=== PATIENT | male | born 1930 | race Caucasian/White ===

== ENCOUNTER 2017-09-17 19:11 | Inpatient (IN) | payer MEDICARE, OTHER ==
[~2017-09-17] VITALS: Ht 180.3 cm; Wt 90.9 kg
[~2017-09-17 19:11] MED LIST: ALPR-623 PO; ATOR10TA87 PO; ATR0.5NEB IH; CARB15DR2 EACHEYE; CHOL200035 PO; CLOP75TA35 PO; COU4T PO; COU5T PO; DOCU100C41 PO; FLO0.4C PO; FURO-150 PO; GABA600T2 PO; GUAI100L97 PO; LEVO500T2 PO; LEVO50TA8 PO; LOSA25TA96 PO; METO-395 PO; MULT-785 PO; POTA10TA10 PO; ROPI1TAB2 PO; SIMV20TA5 PO; SOTA80TA PO; UBID100C16 PO; VITC500T PO
[2017-09-17] MEDS ORDERED: ipratropium/albuterol 3ml nebule NEB ONE (19:45)
[2017-09-17] MEDS ORDERED: methylPREDNISolone sod succ 125mg/2ml vial IV ONE (19:45)
[2017-09-17 20:21] LABS: BASOPHILS % (AUTO) 0.2 % (0-1); EOSINOPHILS # (AUTO) 0.3 X10'3 (0-0.9); EOSINOPHILS % (AUTO) 3.5 % (0-6); HEMATOCRIT 31.4 % (42.0-52.0); HEMOGLOBIN 10.5 g/dl (14.0-17.9); LYMPHOCYTES % (AUTO) 9.9 % (21-51); MEAN CORPUSCULAR HEMOGLOBIN 32.7 PG (27.0-31.0); MEAN CORPUSCULAR HGB CONC 33.4 % (33.0-36.5); MEAN CORPUSCULAR VOLUME 97.8 FL (78-98); MEAN PLATELET VOLUME 6.9 FL (7.4-10.4); MONOCYTES # (AUTO) 1.3 X10'3 (0-0.9); MONOCYTES % (AUTO) 13.8 % (2-12); NEUTROPHILS # (AUTO) 7.1 X10'3 (1.8-7.7); NEUTROPHILS % (AUTO) 72.6 % (42-75); PLATELET COUNT 193 X10'3 (140-440); RED BLOOD COUNT 3.21 X10'6 (4.70-6.10); RED CELL DISTRIBUTION WIDTH 15.6 % (11.5-14.5); WHITE BLOOD COUNT 9.8 X10'3 (4.5-11.0)
[2017-09-17 20:33] LABS: INR 2.2 INR; PARTIAL THROMBOPLASTIN TIME 38 SECONDS (22-32); PROTHROMBIN TIME 22.1 SECONDS (9.0-12.0)
[2017-09-17 20:48] LABS: ALANINE AMINOTRANSFERASE 18 U/L (12-78); ALBUMIN 3.4 G/DL (3.4-5.0); ALBUMIN/GLOBULIN RATIO 0.9 (1.1-1.5); ALKALINE PHOSPHATASE 106 IU/L (46-116); ANION GAP 1 (8-16); ASPARTATE AMINO TRANSFERASE 16 U/L (10-37); BILIRUBIN,TOTAL 0.8 MG/DL (0.1-1.0); BLOOD UREA NITROGEN 20 MG/DL (7-18); BUN/CREATININE RATIO 17.5 (5.4-32.0); CALCIUM 8.8 MG/DL (8.5-10.1); CHLORIDE 97 MMOL/L (99-107); CREATININE 1.14 MG/DL (0.60-1.10); GLUCOSE 125 MG/DL (70-104); POTASSIUM 4.7 MMOL/L (3.5-5.1); SODIUM 137 MMOL/L (135-145); TOTAL CARBON DIOXIDE 39.3 MMOL/L (24-32); eGFR 61 ML/MIN
[2017-09-17] MEDS ORDERED: DOCU-28 PO (21:48)
[2017-09-17] MEDS ORDERED: LOSA25TA96 PO (21:48)
[2017-09-17] MEDS ORDERED: AMLO2.5T2 PO (21:48)
[2017-09-17] MEDS ORDERED: FURO80TA87 PO (21:48)
[2017-09-17] MEDS ORDERED: HYDR-565 PO (21:48)
[2017-09-17] MEDS ORDERED: IPRA3AMP IH (21:48)
[2017-09-17] MEDS ORDERED: PANT-47 PO (21:48)
[2017-09-17] MEDS ORDERED: acetaminophen 325mg tablet PO PRN ×2 (22:40)
[2017-09-17] MEDS ORDERED: furosemide 10 MG/1 ML 10ml inj IV ONE (22:40)
[2017-09-17] MEDS ORDERED: magnesium hydroxide 30ml (MOM) UD suspension PO PRN (22:40)
[2017-09-17] MEDS ORDERED: mag hydrox/Alum hydrox/simeth 30ml oral suspension PO PRN (22:40)
[2017-09-17] MEDS ORDERED: ondansetron/PF 4mg/2ml inj IV PRN (22:40)
[2017-09-17] MEDS ORDERED: ipratropium/albuterol 3ml nebule IH PRN (22:55)
[2017-09-17] MEDS ORDERED: HYDROcodone/acetaminophen 10/325mg tab PO PRN (22:55)
[2017-09-17] MEDS ORDERED: warfarin 2.5mg tablet PO ONE (23:15)
[2017-09-18] VITALS (7 sets, daily range): BP systolic 95–136; BP diastolic 57–72
[2017-09-18 02:28] LABS: ALBUMIN 3.3 G/DL (3.4-5.0); ANION GAP 4 (8-16); BLOOD UREA NITROGEN 21 MG/DL (7-18); BUN/CREATININE RATIO 18.9 (5.4-32.0); CALCIUM 8.7 MG/DL (8.5-10.1); CHLORIDE 98 MMOL/L (99-107); CREATININE 1.11 MG/DL (0.60-1.10); GLUCOSE 210 MG/DL (70-104); SODIUM 137 MMOL/L (135-145); TOTAL CARBON DIOXIDE 34.8 MMOL/L (24-32); eGFR 63 ML/MIN
[2017-09-18] MEDS: levoTHYROXINE 25mcg tablet PO SCH (07:20)
[2017-09-18] MEDS: docusate sod 100mg capsule PO SCH (07:20)
[2017-09-18] MEDS: losartan 25mg tablet PO SCH (07:21)
[2017-09-18] MEDS: potassium chloride 10mEq ER tablet PO SCH ×3 (07:21→17:25)
[2017-09-18] MEDS: atorvastatin 10mg tablet PO SCH (07:21)
[2017-09-18] MEDS: multivitamins, therapeutics tablet PO SCH (07:21)
[2017-09-18] MEDS: pantoprazole 40mg Tablet.DR PO SCH (07:21)
[2017-09-18] MEDS: clopidogrel 75mg tablet PO SCH (07:21)
[2017-09-18] MEDS ORDERED: non-formulary drug (Ubidecarenone (Coq-10) 100 MG) PO SCH (08:00)
[2017-09-18] MEDS ORDERED: furosemide 10 MG/1 ML 10ml inj IV SCH (08:00)
[2017-09-18] MEDS ORDERED: amLODIPine 2.5mg tablet PO SCH (08:00)
[2017-09-18 09:00] LABS: BASOPHILS % (AUTO) 0.1 % (0-1); EOSINOPHILS # (AUTO) 0.1 X10'3 (0-0.9); HEMATOCRIT 31.1 % (42.0-52.0); HEMOGLOBIN 10.5 g/dl (14.0-17.9); LYMPHOCYTES # (AUTO) 0.6 X10'3 (1.1-4.8); LYMPHOCYTES % (AUTO) 9.5 % (21-51); MEAN CORPUSCULAR HEMOGLOBIN 33.3 PG (27.0-31.0); MEAN CORPUSCULAR HGB CONC 33.6 % (33.0-36.5); MEAN PLATELET VOLUME 7.2 FL (7.4-10.4); MONOCYTES # (AUTO) 0.1 X10'3 (0-0.9); MONOCYTES % (AUTO) 1.8 % (2-12); NEUTROPHILS # (AUTO) 5.6 X10'3 (1.8-7.7); NEUTROPHILS % (AUTO) 87.6 % (42-75); PLATELET COUNT 177 X10'3 (140-440); RED BLOOD COUNT 3.14 X10'6 (4.70-6.10); RED CELL DISTRIBUTION WIDTH 15.6 % (11.5-14.5); WHITE BLOOD COUNT 6.4 X10'3 (4.5-11.0)
[2017-09-18 09:04] LABS: INR 2.5 INR; PROTHROMBIN TIME 25.4 SECONDS (9.0-12.0)
[2017-09-18] MEDS: furosemide 10 MG/1 ML 10ml inj IV SCH (15:34)
[2017-09-18] MEDS ORDERED: MESSAGE TO NURSING PO NR (20:00)
[2017-09-18] MEDS: carVEDilol 3.125mg tablet PO SCH (20:19)
[2017-09-19] VITALS (8 sets, daily range): BP systolic 85–120; BP diastolic 34–61
[2017-09-19] MEDS: furosemide 10 MG/1 ML 10ml inj IV SCH ×2 (00:36→09:54)
[2017-09-19 05:49] LABS: INR 2.6 INR; PROTHROMBIN TIME 26.1 SECONDS (9.0-12.0)
[2017-09-19 06:07] LABS: ALBUMIN 2.9 G/DL (3.4-5.0); ANION GAP 3 (8-16); BLOOD UREA NITROGEN 25 MG/DL (7-18); CALCIUM 8.3 MG/DL (8.5-10.1); CHLORIDE 97 MMOL/L (99-107); GLUCOSE 104 MG/DL (70-104); POTASSIUM 3.5 MMOL/L (3.5-5.1); SODIUM 137 MMOL/L (135-145); TOTAL CARBON DIOXIDE 37.3 MMOL/L (24-32); eGFR 71 ML/MIN
[2017-09-19] MEDS: potassium chloride 10mEq ER tablet PO SCH ×3 (09:49→18:00)
[2017-09-19] MEDS: albuterol 2.5 MG/3 ML nebule NEB SCH ×2 (09:49→11:21)
[2017-09-19] MEDS: atorvastatin 10mg tablet PO SCH (09:50)
[2017-09-19] MEDS: carVEDilol 3.125mg tablet PO SCH (09:51)
[2017-09-19] MEDS: multivitamins, therapeutics tablet PO SCH (09:52)
[2017-09-19] MEDS: clopidogrel 75mg tablet PO SCH (09:52)
[2017-09-19] MEDS: levoTHYROXINE 25mcg tablet PO SCH (09:53)
[2017-09-19] MEDS: pantoprazole 40mg Tablet.DR PO SCH (09:53)
[2017-09-19] MEDS: losartan 25mg tablet PO SCH (09:53)
[2017-09-19] MEDS: docusate sod 100mg capsule PO SCH (09:54)
[2017-09-19] MEDS ORDERED: furosemide 40mg/4ml inj IV ONE (12:30)
[2017-09-19] MEDS ORDERED: normal saline 1000ml 1,000 ML IV ONE (13:05)
[2017-09-19 15:21] LABS: ABG BASE EXCESS 7.2 mmol/L (-2.0-3.0); ABG HCO3 32.4 mmol/L (22.0-26.0); ABG OXYGEN SATURATION 98.4 % (95-98); ABG PCO2 (T) 49.2 mmHg (35.0-48.0); ABG PH (T) 7.437 (7.350-7.450); ABG PO2 (T) 135.5 mmHg (83-108); ALLEN'S TEST Positive; FCOHb 0.3 % (0.5-1.5); FLOW 15 L/min; FMetHb 0.2 % (0.3-1.12); FO2Hb 97.9 % (94-100); RESPIRATORY RATE (OBSERVED) 30 b/min
[2017-09-19] MEDS: piperacillin/tazo 4.5gm/100ml 100 ML IV SCH (16:26)
[2017-09-19] MEDS: ipratropium/albuterol 3ml nebule IH SCH ×2 (16:52→20:57)
[2017-09-19] MEDS: levoFLOXACIN-Levaquin 750MG/D5 150 ML IV SCH (17:00)
[2017-09-19] MEDS: furosemide 20 MG/2 ML vial IV SCH (20:00)
[2017-09-19] MEDS: temazepam 15mg capsule PO PRN (22:21)
[2017-09-19] MEDS: acetaminophen 325mg tablet PO PRN (22:21)
[2017-09-20] MEDS: piperacillin/tazo 4.5gm/100ml 100 ML IV SCH ×2 (00:34→08:18)
[2017-09-20 03:00] VITALS: BP 92/46
[2017-09-20 06:00] VITALS: BP 101/57
[2017-09-20 06:32] LABS: INR 2.1 INR; PROTHROMBIN TIME 21.4 SECONDS (9.0-12.0)
[2017-09-20 06:55] LABS: ALBUMIN 2.5 G/DL (3.4-5.0); ANION GAP 3 (8-16); BLOOD UREA NITROGEN 34 MG/DL (7-18); BUN/CREATININE RATIO 25.4 (5.4-32.0); CHLORIDE 96 MMOL/L (99-107); CREATININE 1.34 MG/DL (0.60-1.10); GLUCOSE 100 MG/DL (70-104); POTASSIUM 3.8 MMOL/L (3.5-5.1); SODIUM 138 MMOL/L (135-145); TOTAL CARBON DIOXIDE 38.7 MMOL/L (24-32); TROPONIN I < 0.04 NG/ML (0.0-0.05); eGFR 50 ML/MIN
[2017-09-20] MEDS: ipratropium/albuterol 3ml nebule IH SCH ×4 (07:13→20:12)
[2017-09-20] MEDS: potassium chloride 10mEq ER tablet PO SCH ×3 (08:08→17:51)
[2017-09-20] MEDS: multivitamins, therapeutics tablet PO SCH (08:08)
[2017-09-20] MEDS: atorvastatin 10mg tablet PO SCH (08:08)
[2017-09-20] MEDS: docusate sod 100mg capsule PO SCH (08:08)
[2017-09-20] MEDS: pantoprazole 40mg Tablet.DR PO SCH (08:08)
[2017-09-20] MEDS: clopidogrel 75mg tablet PO SCH (08:08)
[2017-09-20] MEDS: furosemide 20 MG/2 ML vial IV SCH ×2 (08:09→20:54)
[2017-09-20] MEDS: levoTHYROXINE 25mcg tablet PO SCH (08:21)
[2017-09-20] MEDS: levoFLOXACIN-Levaquin 750MG/D5 150 ML IV SCH (08:57)
[2017-09-20 11:00] VITALS: BP 98/52
[2017-09-20 15:00] VITALS: BP 108/62
[2017-09-20 19:00] VITALS: BP 116/63
[2017-09-20] MEDS: temazepam 15mg capsule PO PRN (20:52)
[2017-09-20] MEDS: acetaminophen 325mg tablet PO PRN (20:53)
[2017-09-20] MEDS ORDERED: warfarin 3mg tablet PO ONE (21:00)
[2017-09-20 23:00] VITALS: BP 98/44
[2017-09-21 03:00] VITALS: BP 108/53
[2017-09-21 06:00] VITALS: BP 106/59
[2017-09-21 06:48] LABS: BASOPHILS % (AUTO) 0 % (0-1); EOSINOPHILS # (AUTO) 0.3 X10'3 (0-0.9); EOSINOPHILS % (AUTO) 3.1 % (0-6); HEMATOCRIT 26.7 % (42.0-52.0); HEMOGLOBIN 9.1 g/dl (14.0-17.9); LYMPHOCYTES % (AUTO) 9.7 % (21-51); MEAN CORPUSCULAR HEMOGLOBIN 34.2 PG (27.0-31.0); MEAN CORPUSCULAR HGB CONC 34.2 % (33.0-36.5); MEAN CORPUSCULAR VOLUME 100.1 FL (78-98); MEAN PLATELET VOLUME 7.2 FL (7.4-10.4); MONOCYTES % (AUTO) 9.8 % (2-12); NEUTROPHILS # (AUTO) 8.2 X10'3 (1.8-7.7); NEUTROPHILS % (AUTO) 77.4 % (42-75); PLATELET COUNT 166 X10'3 (140-440); RED BLOOD COUNT 2.67 X10'6 (4.70-6.10); RED CELL DISTRIBUTION WIDTH 15.3 % (11.5-14.5); WHITE BLOOD COUNT 10.6 X10'3 (4.5-11.0)
[2017-09-21] MEDS: levoTHYROXINE 25mcg tablet PO SCH (07:00)
[2017-09-21 07:01] LABS: ALBUMIN 2.4 G/DL (3.4-5.0); ANION GAP 0 (8-16); BLOOD UREA NITROGEN 26 MG/DL (7-18); CALCIUM 8.2 MG/DL (8.5-10.1); CHLORIDE 98 MMOL/L (99-107); CREATININE 1.18 MG/DL (0.60-1.10); GLUCOSE 98 MG/DL (70-104); INR 1.5 INR; POTASSIUM 3.8 MMOL/L (3.5-5.1); PROTHROMBIN TIME 15.6 SECONDS (9.0-12.0); SODIUM 137 MMOL/L (135-145); TOTAL CARBON DIOXIDE 38.8 MMOL/L (24-32); eGFR 58 ML/MIN
[2017-09-21] MEDS: ipratropium/albuterol 3ml nebule IH SCH ×4 (07:10→20:26)
[2017-09-21] MEDS: furosemide 20 MG/2 ML vial IV SCH ×2 (08:51→21:17)
[2017-09-21] MEDS: docusate sod 100mg capsule PO SCH (08:51)
[2017-09-21] MEDS: pantoprazole 40mg Tablet.DR PO SCH (08:53)
[2017-09-21] MEDS: multivitamins, therapeutics tablet PO SCH (08:53)
[2017-09-21] MEDS: potassium chloride 10mEq ER tablet PO SCH ×3 (08:53→21:25)
[2017-09-21] MEDS: atorvastatin 10mg tablet PO SCH (08:53)
[2017-09-21] MEDS: clopidogrel 75mg tablet PO SCH (08:54)
[2017-09-21 11:30] VITALS: BP 109/77
[2017-09-21 15:30] VITALS: BP 123/59
[2017-09-21 20:00] VITALS: BP_SYST 126; BP_SYST 15; BP_DIAS 55; BP_DIAS 61
[2017-09-21] MEDS ORDERED: warfarin 3mg tablet PO ONE (21:00)
[2017-09-21] MEDS: temazepam 15mg capsule PO PRN (21:17)
[2017-09-21] MEDS: acetaminophen 325mg tablet PO PRN (21:19)
[2017-09-21 23:00] VITALS: BP_SYST 105; BP_SYST 15; BP_DIAS 55
[2017-09-22 03:00] VITALS: BP 123/62
[2017-09-22 06:00] VITALS: BP 126/65
[2017-09-22 06:00] LABS: BASOPHILS % (AUTO) 0.1 % (0-1); EOSINOPHILS # (AUTO) 0.4 X10'3 (0-0.9); EOSINOPHILS % (AUTO) 4.4 % (0-6); HEMATOCRIT 30.1 % (42.0-52.0); LYMPHOCYTES # (AUTO) 1.1 X10'3 (1.1-4.8); LYMPHOCYTES % (AUTO) 12.9 % (21-51); MEAN CORPUSCULAR HEMOGLOBIN 32.6 PG (27.0-31.0); MEAN CORPUSCULAR HGB CONC 33.2 % (33.0-36.5); MEAN CORPUSCULAR VOLUME 98.3 FL (78-98); MONOCYTES # (AUTO) 0.8 X10'3 (0-0.9); MONOCYTES % (AUTO) 9.2 % (2-12); NEUTROPHILS # (AUTO) 6.1 X10'3 (1.8-7.7); NEUTROPHILS % (AUTO) 73.4 % (42-75); PLATELET COUNT 199 X10'3 (140-440); RED BLOOD COUNT 3.06 X10'6 (4.70-6.10); WHITE BLOOD COUNT 8.3 X10'3 (4.5-11.0)
[2017-09-22 06:16] LABS: INR 1.4 INR
[2017-09-22 06:22] LABS: ALBUMIN 2.6 G/DL (3.4-5.0); ANION GAP 1 (8-16); BLOOD UREA NITROGEN 21 MG/DL (7-18); BUN/CREATININE RATIO 18.1 (5.4-32.0); CALCIUM 8.3 MG/DL (8.5-10.1); CHLORIDE 99 MMOL/L (99-107); CREATININE 1.16 MG/DL (0.60-1.10); GLUCOSE 97 MG/DL (70-104); MAGNESIUM 2.3 MG/DL (1.5-2.4); SODIUM 138 MMOL/L (135-145); TOTAL CARBON DIOXIDE 37.7 MMOL/L (24-32); eGFR 59 ML/MIN
[2017-09-22] MEDS: levoTHYROXINE 25mcg tablet PO SCH (07:06)
[2017-09-22] MEDS: potassium chloride 10mEq ER tablet PO SCH ×2 (07:07→13:00)
[2017-09-22] MEDS: docusate sod 100mg capsule PO SCH (07:07)
[2017-09-22] MEDS: clopidogrel 75mg tablet PO SCH (07:07)
[2017-09-22] MEDS: atorvastatin 10mg tablet PO SCH (07:07)
[2017-09-22] MEDS: multivitamins, therapeutics tablet PO SCH (07:07)
[2017-09-22] MEDS: furosemide 20 MG/2 ML vial IV SCH (07:07)
[2017-09-22] MEDS: pantoprazole 40mg Tablet.DR PO SCH (07:07)
[2017-09-22] MEDS: ipratropium/albuterol 3ml nebule IH SCH ×2 (08:41→11:55)
[2017-09-22 11:00] VITALS: BP 121/83
== END 2017-09-22 13:30 | disposition home health service (06) | DRG 291 ==
LOC: ER 19:11 → ED HOLD 22:40 → PCU 3S 09-18 00:41
PROVIDERS: ADMIT Internal Medicine; ATTEND Internal Medicine
DX: I11.0 Hypertensive heart disease with heart failure (principal); J96.21 Acute and chronic respiratory failure with hypoxia; N17.9 Acute kidney failure, unspecified; I95.9 Hypotension, unspecified; I48.91 Unspecified atrial fibrillation; G62.9 Polyneuropathy, unspecified; Z95.1 Presence of aortocoronary bypass graft; Z79.01 Long term (current) use of anticoagulants; I25.10 Atherosclerotic heart disease of native coronary artery without angina pectoris; E03.9 Hypothyroidism, unspecified; E78.5 Hyperlipidemia, unspecified; G89.29 Other chronic pain; I50.33 Acute on chronic diastolic (congestive) heart failure; N40.0 Benign prostatic hyperplasia without lower urinary tract symptoms; Z96.659 Presence of unspecified artificial knee joint; Z95.0 Presence of cardiac pacemaker; I25.2 Old myocardial infarction; Z79.02 Long term (current) use of antithrombotics/antiplatelets; Z79.899 Other long term (current) drug therapy; Z85.828 Personal history of other malignant neoplasm of skin; Z82.49 Family history of ischemic heart disease and other diseases of the circulatory system
CPT/HCPCS: 36415; 36600; 71045; 71046; 80048; 80053; 82803; 83605; 83735; 83880; 84145; 84484; 85018; 85025; 85610; 85730; 86713; 87040; 87070; 87502; 87503; 93005; 94640; 94760; 96374; 97110; 97116; 97161; 99285; A4315; A6212; A6213; J1940; J1956; J2543; J2930; J7030

== ENCOUNTER 2017-11-09 10:20 | Day surgery (SDC) | payer MEDICARE, OTHER ==
[2017-11-08 12:12] LABS: BASOPHILS # (AUTO) 0.1 X10'3 (0-0.2); BASOPHILS % (AUTO) 0.7 % (0-1); EOSINOPHILS # (AUTO) 0.4 X10'3 (0-0.9); EOSINOPHILS % (AUTO) 5.2 % (0-6); HEMATOCRIT 29.7 % (42.0-52.0); HEMOGLOBIN 9.9 g/dl (14.0-17.9); LYMPHOCYTES # (AUTO) 1.1 X10'3 (1.1-4.8); LYMPHOCYTES % (AUTO) 14.4 % (21-51); MEAN CORPUSCULAR HGB CONC 33.4 % (33.0-36.5); MEAN CORPUSCULAR VOLUME 95.8 FL (78-98); MEAN PLATELET VOLUME 6.8 FL (7.4-10.4); MONOCYTES # (AUTO) 0.7 X10'3 (0-0.9); MONOCYTES % (AUTO) 9.8 % (2-12); NEUTROPHILS # (AUTO) 5.2 X10'3 (1.8-7.7); NEUTROPHILS % (AUTO) 69.9 % (42-75); PLATELET COUNT 231 X10'3 (140-440); RED CELL DISTRIBUTION WIDTH 15.2 % (11.5-14.5); WHITE BLOOD COUNT 7.4 X10'3 (4.5-11.0)
[2017-11-08 12:21] LABS: INR 2.6 INR; PROTHROMBIN TIME 25.7 SECONDS (9.0-12.0)
[2017-11-08 12:25] LABS: ALBUMIN 3.2 G/DL (3.4-5.0); ANION GAP 1 (8-16); BLOOD UREA NITROGEN 19 MG/DL (7-18); BUN/CREATININE RATIO 19.2 (5.4-32.0); CALCIUM 8.5 MG/DL (8.5-10.1); CHLORIDE 100 MMOL/L (99-107); CREATININE 0.99 MG/DL (0.60-1.10); GLUCOSE 106 MG/DL (70-104); POTASSIUM 3.7 MMOL/L (3.5-5.1); SODIUM 141 MMOL/L (135-145); eGFR 71 ML/MIN
[2017-11-08 12:33] LABS: TOTAL CARBON DIOXIDE 40.3 MMOL/L (24-32)
[2017-11-09] VITALS (15 sets, daily range): BP systolic 113–148; BP diastolic 54–79
[~2017-11-09 10:20] MED LIST changes: -ALPR-623 PO; -ATR0.5NEB IH; -CARB15DR2 EACHEYE; -CHOL200035 PO; -COU5T PO; +DOCU-28 PO; -DOCU100C41 PO; -FLO0.4C PO; -FURO-150 PO; +FURO80TA87 PO; -GABA600T2 PO; -GUAI100L97 PO; +HYDR-565 PO; +IPRA3AMP IH; -LEVO500T2 PO; -LOSA25TA96 PO; -METO-395 PO; +PANT-47 PO; -ROPI1TAB2 PO; -SIMV20TA5 PO; -SOTA80TA PO; -VITC500T PO
[2017-11-09] MEDS ORDERED: LORazepam 0.5 MG tablet PO ONE (10:55)
[2017-11-09] MEDS ORDERED: morphine 10mg/ml inj. IV ONE (10:55)
[2017-11-09] MEDS ORDERED: MIDAZolam 5mg/ml 2ml vial IV ONE (10:55)
[2017-11-09] MEDS ORDERED: diphenhydrAMINE 25mg capsule PO ONE (10:55)
[2017-11-09] MEDS ORDERED: amiodarone in dextrose, iso-osm 150mg/100ml bag IV ONE (10:55)
[2017-11-09] MEDS ORDERED: atropine 0.1mg/ml 10ml syringe IV ONE (10:55)
[2017-11-09] MEDS ORDERED: ACET-2615 PO (11:24)
[2017-11-09] MEDS ORDERED: ROPI1TAB2 PO (11:24)
[2017-11-09] MEDS ORDERED: FLO0.4C PO (11:24)
[2017-11-09] MEDS ORDERED: NITR0.4T51 SL (11:24)
[2017-11-09] MEDS ORDERED: morphine 4 MG/ML inj SYRINge IV ONE (11:35)
[2017-11-09] MEDS ORDERED: normal saline 1000ml 1,000 ML IV SCH (11:40)
== END 2017-11-09 17:35 | disposition home or self-care (01) ==
LOC: SSTAY O 10:20
PROVIDERS: ATTEND Internal Medicine Cardiovascular Disease
DX: I48.91 Unspecified atrial fibrillation (principal); I25.10 Atherosclerotic heart disease of native coronary artery without angina pectoris; E78.5 Hyperlipidemia, unspecified; I11.0 Hypertensive heart disease with heart failure; I50.30 Unspecified diastolic (congestive) heart failure; Z95.0 Presence of cardiac pacemaker; Z95.1 Presence of aortocoronary bypass graft; Z79.01 Long term (current) use of anticoagulants
CPT/HCPCS: 36415; 80048; 85025; 85610; 92960; 93005; J2250; J2270; J7030; Q0163; A4620; J0282; J0461

== ENCOUNTER 2017-11-26 00:06 | Inpatient (IN) | payer MEDICARE, OTHER ==
[~2017-11-26] VITALS: Ht 180.3 cm; Wt 81.2 kg
[~2017-11-26 00:06] MED LIST changes: +ACET-2615 PO; +FLO0.4C PO; +NITR0.4T51 SL; +ROPI1TAB2 PO
[2017-11-26 01:10] LABS: PARTIAL THROMBOPLASTIN TIME 37 SECONDS (22-32); PROTHROMBIN TIME 20.5 SECONDS (9.0-12.0)
[2017-11-26 01:24] LABS: ALANINE AMINOTRANSFERASE 24 U/L (12-78); ALBUMIN 3.6 G/DL (3.4-5.0); ALBUMIN/GLOBULIN RATIO 0.8 (1.1-1.5); ALKALINE PHOSPHATASE 99 IU/L (46-116); ASPARTATE AMINO TRANSFERASE 27 U/L (10-37); BILIRUBIN,TOTAL 0.7 MG/DL (0.1-1.0); BLOOD UREA NITROGEN 42 MG/DL (7-18); BUN/CREATININE RATIO 24.7 (5.4-32.0); CALCIUM 9.1 MG/DL (8.5-10.1); CHLORIDE 84 MMOL/L (99-107); GLUCOSE 135 MG/DL (70-104); MAGNESIUM 2.3 MG/DL (1.5-2.4); SODIUM 133 MMOL/L (135-145); eGFR 38 ML/MIN
[2017-11-26 01:32] LABS: COLOR,URINE Yellow (Yellow); GLUCOSE, URINE Negative (Neg); KETONES,URINE Negative (Neg); LEUKOCYTE ESTERASE ,URINE Large (Neg); NITRITES, URINE Negative (Neg); OCCULT BLOOD,URINE Trace (Neg); PROTEIN,URINE Negative (Neg); UROBILINOGEN,URINE 0.2 E.U/dL (0.2-1.0)
[2017-11-26 01:32] LABS: BASOPHILS % (AUTO) 0 % (0-1); EOSINOPHILS # (AUTO) 0.2 X10'3 (0-0.9); EOSINOPHILS % (AUTO) 1.3 % (0-6); HEMATOCRIT 33.3 % (42.0-52.0); HEMOGLOBIN 11.4 g/dl (14.0-17.9); LYMPHOCYTES # (AUTO) 1.5 X10'3 (1.1-4.8); LYMPHOCYTES % (AUTO) 9.9 % (21-51); MEAN CORPUSCULAR HEMOGLOBIN 31.5 PG (27.0-31.0); MEAN CORPUSCULAR HGB CONC 34.3 % (33.0-36.5); MEAN CORPUSCULAR VOLUME 92.1 FL (78-98); MEAN PLATELET VOLUME 7.6 FL (7.4-10.4); MONOCYTES # (AUTO) 1.5 X10'3 (0-0.9); MONOCYTES % (AUTO) 9.8 % (2-12); NEUTROPHILS # (AUTO) 12.3 X10'3 (1.8-7.7); PLATELET COUNT 384 X10'3 (140-440); RED BLOOD COUNT 3.62 X10'6 (4.70-6.10); RED CELL DISTRIBUTION WIDTH 14.1 % (11.5-14.5); WHITE BLOOD COUNT 15.5 X10'3 (4.5-11.0)
[2017-11-26 01:43] LABS: CLARITY,URINE CLEAR (Clear); UA COLLECTION TYPE CLN CATCH MIDSTREAM
[2017-11-26 01:44] LABS: BACTERIA,URINE FEW /HPF (Neg); RBC,URINE 0-2 /HPF (0-2); SQUAMOUS EPITHELIAL CELL,UR FEW /LPF (FEW); WBC CLUMPS,URINE FEW /HPF (NEGATIVE)
[2017-11-26 01:56] LABS: ANION GAP 1 (8-16)
[2017-11-26 02:01] LABS: POTASSIUM 1.9 MMOL/L (3.5-5.1)
[2017-11-26 02:02] LABS: TOTAL CARBON DIOXIDE 48.3 MMOL/L (24-32)
[2017-11-26] MEDS ORDERED: potassium Cl 20 mEq SR tablet PO ONE (02:05)
[2017-11-26] MEDS ORDERED: normal saline 1000ML IV soln IVB ONE (02:05)
[2017-11-26] MEDS: potassium 10mEq/100ml NS w/LIDOcaine (10mg/bag) IV SCH ×2 (02:29→03:43)
[2017-11-26] MEDS ORDERED: CLOP75TA15 PO (02:58)
[2017-11-26] MEDS ORDERED: ZAR2.5T CORPAK (02:58)
[2017-11-26 04:27] LABS: ALANINE AMINOTRANSFERASE 22 U/L (12-78); ALBUMIN 3.2 G/DL (3.4-5.0); ALBUMIN/GLOBULIN RATIO 0.8 (1.1-1.5); ALKALINE PHOSPHATASE 85 IU/L (46-116); ANION GAP 3 (8-16); ASPARTATE AMINO TRANSFERASE 30 U/L (10-37); BILIRUBIN,TOTAL 0.6 MG/DL (0.1-1.0); BLOOD UREA NITROGEN 35 MG/DL (7-18); BUN/CREATININE RATIO 25.5 (5.4-32.0); CALCIUM 8.2 MG/DL (8.5-10.1); CHLORIDE 88 MMOL/L (99-107); CREATININE 1.37 MG/DL (0.60-1.10); GLUCOSE 111 MG/DL (70-104); SODIUM 135 MMOL/L (135-145); eGFR 49 ML/MIN
[2017-11-26 04:29] LABS: POTASSIUM 3.1 MMOL/L (3.5-5.1)
[2017-11-26 04:31] LABS: TOTAL CARBON DIOXIDE 44.3 MMOL/L (24-32)
[2017-11-26] MEDS ORDERED: magnesium 2GM in 50ml NS 50 ML IV PRN (05:25)
[2017-11-26] MEDS ORDERED: magnesium 4gm in 100ml NS 100 ML IV PRN (05:25)
[2017-11-26] MEDS ORDERED: HYDROcodone/acetaminophen 10/325mg tab PO PRN (05:25)
[2017-11-26] MEDS ORDERED: potassium Cl 40MEQ/NS 500ml 500 ML IV PRN ×2 (05:25)
[2017-11-26] MEDS ORDERED: ondansetron/PF 4mg/2ml inj IV PRN (05:25)
[2017-11-26] MEDS ORDERED: acetaminophen 325mg tablet PO PRN (05:25)
[2017-11-26] MEDS ORDERED: HYDROcodone/acetaminophen 5mg/325mg tablet PO PRN (05:25)
[2017-11-26] MEDS ORDERED: magnesium hydroxide 30ml (MOM) UD suspension PO PRN (05:25)
[2017-11-26] MEDS ORDERED: potassium Cl 20 mEq SR tablet PO PRN (05:25)
[2017-11-26] MEDS ORDERED: magnesium Cl slow-release 64mg tablet PO PRN (05:25)
[2017-11-26] MEDS ORDERED: morphine 4 MG/ML inj SYRINge IV PRN ×2 (05:25)
[2017-11-26] MEDS ORDERED: mag hydrox/Alum hydrox/simeth 30ml oral suspension PO PRN (05:25)
[2017-11-26] MEDS: normal saline 1000ml 1,000 ML IV SCH ×2 (06:53→20:50)
[2017-11-26 07:35] VITALS: BP_SYST 123; BP_SYST 69; BP_SYST 98; BP_DIAS 37; BP_DIAS 55; BP_DIAS 77
[2017-11-26] MEDS ORDERED: furosemide 40mg tablet PO SCH (08:00)
[2017-11-26] MEDS ORDERED: warfarin 4mg tablet PO SCH (08:00)
[2017-11-26] MEDS: K and/or MAG REPLACEMENT MC SCH (08:00)
[2017-11-26] MEDS: pantoprazole 40mg Tablet.DR PO SCH (08:27)
[2017-11-26] MEDS: multivitamins, therapeutics tablet PO SCH (08:27)
[2017-11-26] MEDS: levoTHYROXINE 25mcg tablet PO SCH (08:28)
[2017-11-26] MEDS: clopidogrel 75mg tablet PO SCH (08:28)
[2017-11-26] MEDS: atorvastatin 10mg tablet PO SCH (08:29)
[2017-11-26] MEDS: potassium chloride 10mEq ER tablet PO SCH (08:30)
[2017-11-26] MEDS: tamsulosin 0.4mg capsule PO SCH (08:30)
[2017-11-26] MEDS: CefTRIAXone 2gm/NS 100ml IVPB 100 ML IV SCH (08:33)
[2017-11-26 12:10] VITALS: BP 118/57
[2017-11-26] MEDS: potassium Cl 20 mEq SR tablet PO PRN (17:19)
[2017-11-26 19:20] VITALS: BP 102/53
[2017-11-26] MEDS: acetaminophen 325mg tablet PO PRN (19:58)
[2017-11-26] MEDS: lactobacillus rhamnosus 10,000 MMU CELLS/CAPSULE PO SCH (20:45)
[2017-11-26] MEDS: ROPINIRole 1mg tablet PO SCH (20:45)
[2017-11-26] MEDS ORDERED: warfarin 5mg tablet PO ONE (21:00)
[2017-11-26 23:00] VITALS: BP 116/53
[2017-11-27 02:32] LABS: INR 2.4 INR; PROTHROMBIN TIME 24.4 SECONDS (9.0-12.0)
[2017-11-27 02:44] LABS: ALBUMIN 2.7 G/DL (3.4-5.0); ANION GAP 3 (8-16); BLOOD UREA NITROGEN 31 MG/DL (7-18); BUN/CREATININE RATIO 25.4 (5.4-32.0); CALCIUM 8.5 MG/DL (8.5-10.1); CHLORIDE 92 MMOL/L (99-107); CHOL/HDL RATIO 2.5 (0.00-4.99); CHOLESTEROL 116 MG/DL (0-200); CREATININE 1.22 MG/DL (0.60-1.10); GLUCOSE 131 MG/DL (70-104); HDL CHOLESTEROL 47 MG/DL (35-60); LDL CHOLESTEROL 62 MG/DL (50-100); MAGNESIUM 2.1 MG/DL (1.5-2.4); SODIUM 137 MMOL/L (135-145); TRIGLYCERIDES 38 MG/DL (20-135); eGFR 56 ML/MIN
[2017-11-27 02:47] LABS: BASOPHILS % (AUTO) 0.1 % (0-1); EOSINOPHILS # (AUTO) 0.2 X10'3 (0-0.9); MONOCYTES # (AUTO) 1.5 X10'3 (0-0.9)
[2017-11-27 02:49] LABS: EOSINOPHILS % (AUTO) 1.3 % (0-6); HEMATOCRIT 27.7 % (42.0-52.0); HEMOGLOBIN 9.6 g/dl (14.0-17.9); LYMPHOCYTES # (AUTO) 1.3 X10'3 (1.1-4.8); LYMPHOCYTES % (AUTO) 9.5 % (21-51); MEAN CORPUSCULAR HEMOGLOBIN 33.2 PG (27.0-31.0); MEAN CORPUSCULAR HGB CONC 34.7 % (33.0-36.5); MEAN CORPUSCULAR VOLUME 95.8 FL (78-98); MEAN PLATELET VOLUME 7.5 FL (7.4-10.4); MONOCYTES % (AUTO) 10.9 % (2-12); NEUTROPHILS # (AUTO) 11.2 X10'3 (1.8-7.7); NEUTROPHILS % (AUTO) 78.2 % (42-75); PLATELET COUNT 321 X10'3 (140-440); POTASSIUM 2.7 MMOL/L (3.5-5.1); RED BLOOD COUNT 2.89 X10'6 (4.70-6.10); WHITE BLOOD COUNT 14.2 X10'3 (4.5-11.0)
[2017-11-27 02:50] LABS: TOTAL CARBON DIOXIDE 42.2 MMOL/L (24-32)
[2017-11-27] MEDS: potassium Cl 20 mEq SR tablet PO PRN ×4 (02:58→17:46)
[2017-11-27 07:00] VITALS: BP_SYST 122; BP_SYST 133; BP_DIAS 50; BP_DIAS 64
[2017-11-27] MEDS: clopidogrel 75mg tablet PO SCH (07:39)
[2017-11-27] MEDS: lactobacillus rhamnosus 10,000 MMU CELLS/CAPSULE PO SCH ×2 (07:39→21:02)
[2017-11-27] MEDS: tamsulosin 0.4mg capsule PO SCH (07:39)
[2017-11-27] MEDS: multivitamins, therapeutics tablet PO SCH (07:39)
[2017-11-27] MEDS: levoTHYROXINE 25mcg tablet PO SCH (07:39)
[2017-11-27] MEDS: CefTRIAXone 2gm/NS 100ml IVPB 100 ML IV SCH (07:40)
[2017-11-27] MEDS: atorvastatin 10mg tablet PO SCH (07:47)
[2017-11-27] MEDS: potassium chloride 10mEq ER tablet PO SCH (07:47)
[2017-11-27] MEDS: pantoprazole 40mg Tablet.DR PO SCH (07:47)
[2017-11-27 08:00] VITALS: BP_SYST 128; BP_SYST 94; BP_DIAS 47; BP_DIAS 62
[2017-11-27] MEDS: K and/or MAG REPLACEMENT MC SCH (08:00)
[2017-11-27 12:11] VITALS: BP 104/49
[2017-11-27 16:09] LABS: POTASSIUM 3.3 MMOL/L (3.5-5.1)
[2017-11-27 20:00] VITALS: BP_SYST 142; BP_SYST 149; BP_SYST 150; BP_DIAS 69; BP_DIAS 74; BP_DIAS 78
[2017-11-27] MEDS ORDERED: warfarin 5mg tablet PO ONE (21:00)
[2017-11-27] MEDS: acetaminophen 325mg tablet PO PRN (21:02)
[2017-11-27] MEDS: ROPINIRole 1mg tablet PO SCH (21:03)
[2017-11-28] VITALS: BP 120/60
[2017-11-28] MEDS: temazepam 15mg capsule PO PRN ×2 (01:32→22:51)
[2017-11-28 05:22] LABS: BASOPHILS % (AUTO) 0.5 % (0-1); EOSINOPHILS # (AUTO) 0.4 X10'3 (0-0.9); EOSINOPHILS % (AUTO) 4.2 % (0-6); HEMATOCRIT 25.8 % (42.0-52.0); LYMPHOCYTES # (AUTO) 1.7 X10'3 (1.1-4.8); LYMPHOCYTES % (AUTO) 17.8 % (21-51); MEAN CORPUSCULAR HEMOGLOBIN 33.5 PG (27.0-31.0); MEAN CORPUSCULAR VOLUME 95.8 FL (78-98); MEAN PLATELET VOLUME 6.9 FL (7.4-10.4); MONOCYTES % (AUTO) 11.2 % (2-12); NEUTROPHILS # (AUTO) 6.2 X10'3 (1.8-7.7); NEUTROPHILS % (AUTO) 66.3 % (42-75); PLATELET COUNT 284 X10'3 (140-440); RED BLOOD COUNT 2.69 X10'6 (4.70-6.10); RED CELL DISTRIBUTION WIDTH 15.5 % (11.5-14.5); WHITE BLOOD COUNT 9.3 X10'3 (4.5-11.0)
[2017-11-28 05:42] LABS: INR 2.3 INR; PROTHROMBIN TIME 23.6 SECONDS (9.0-12.0)
[2017-11-28 05:59] LABS: ALBUMIN 2.5 G/DL (3.4-5.0); ANION GAP 1 (8-16); BLOOD UREA NITROGEN 22 MG/DL (7-18); BUN/CREATININE RATIO 24.7 (5.4-32.0); CALCIUM 8.4 MG/DL (8.5-10.1); CHLORIDE 97 MMOL/L (99-107); CREATININE 0.89 MG/DL (0.60-1.10); GLUCOSE 93 MG/DL (70-104); POTASSIUM 3.5 MMOL/L (3.5-5.1); SODIUM 137 MMOL/L (135-145); TOTAL CARBON DIOXIDE 38.7 MMOL/L (24-32); eGFR 81 ML/MIN
[2017-11-28 07:45] VITALS: BP_SYST 120; BP_SYST 121; BP_SYST 98; BP_DIAS 53; BP_DIAS 61; BP_DIAS 68
[2017-11-28] MEDS: clopidogrel 75mg tablet PO SCH (08:00)
[2017-11-28] MEDS: K and/or MAG REPLACEMENT MC SCH (08:00)
[2017-11-28] MEDS: multivitamins, therapeutics tablet PO SCH (09:38)
[2017-11-28] MEDS: atorvastatin 10mg tablet PO SCH (09:39)
[2017-11-28] MEDS: lactobacillus rhamnosus 10,000 MMU CELLS/CAPSULE PO SCH ×2 (09:39→20:11)
[2017-11-28] MEDS: pantoprazole 40mg Tablet.DR PO SCH (09:39)
[2017-11-28] MEDS: tamsulosin 0.4mg capsule PO SCH (09:40)
[2017-11-28] MEDS: potassium chloride 10mEq ER tablet PO SCH (09:40)
[2017-11-28] MEDS: CefTRIAXone 2gm/NS 100ml IVPB 100 ML IV SCH (09:41)
[2017-11-28] MEDS: levoTHYROXINE 25mcg tablet PO SCH (09:41)
[2017-11-28 11:42] VITALS: BP 109/55
[2017-11-28 20:00] VITALS: BP_SYST 130; BP_SYST 148; BP_SYST 97; BP_DIAS 51; BP_DIAS 66; BP_DIAS 69
[2017-11-28] MEDS: ferrous sulfate ER tablet 140 MG TABLET.ER PO SCH (20:11)
[2017-11-28] MEDS: ROPINIRole 1mg tablet PO SCH (20:11)
[2017-11-28] MEDS ORDERED: warfarin 5mg tablet PO ONE (21:00)
[2017-11-28] MEDS: acetaminophen 325mg tablet PO PRN (22:52)
[2017-11-29] VITALS: BP 131/65
[2017-11-29 05:06] LABS: INR 2.4 INR; PROTHROMBIN TIME 24.1 SECONDS (9.0-12.0)
[2017-11-29 05:07] LABS: BASOPHILS # (AUTO) 0.1 X10'3 (0-0.2); BASOPHILS % (AUTO) 0.7 % (0-1); EOSINOPHILS # (AUTO) 0.4 X10'3 (0-0.9); EOSINOPHILS % (AUTO) 5.6 % (0-6); HEMATOCRIT 25.7 % (42.0-52.0); HEMOGLOBIN 8.9 g/dl (14.0-17.9); LYMPHOCYTES # (AUTO) 1.4 X10'3 (1.1-4.8); LYMPHOCYTES % (AUTO) 17.3 % (21-51); MEAN CORPUSCULAR HEMOGLOBIN 32.4 PG (27.0-31.0); MEAN CORPUSCULAR HGB CONC 34.4 % (33.0-36.5); MEAN CORPUSCULAR VOLUME 94.1 FL (78-98); MEAN PLATELET VOLUME 6.7 FL (7.4-10.4); MONOCYTES % (AUTO) 12.2 % (2-12); NEUTROPHILS # (AUTO) 5.1 X10'3 (1.8-7.7); NEUTROPHILS % (AUTO) 64.2 % (42-75); PLATELET COUNT 279 X10'3 (140-440); RED BLOOD COUNT 2.74 X10'6 (4.70-6.10); RED CELL DISTRIBUTION WIDTH 15.5 % (11.5-14.5); WHITE BLOOD COUNT 7.9 X10'3 (4.5-11.0)
[2017-11-29 05:13] LABS: ALBUMIN 2.4 G/DL (3.4-5.0); ANION GAP 0 (8-16); BLOOD UREA NITROGEN 16 MG/DL (7-18); BUN/CREATININE RATIO 17.8 (5.4-32.0); CALCIUM 8.5 MG/DL (8.5-10.1); CHLORIDE 96 MMOL/L (99-107); GLUCOSE 95 MG/DL (70-104); POTASSIUM 4.1 MMOL/L (3.5-5.1); SODIUM 133 MMOL/L (135-145); TOTAL CARBON DIOXIDE 37.4 MMOL/L (24-32); eGFR 80 ML/MIN
[2017-11-29] MEDS ORDERED: levoTHYROXINE 25mcg tablet PO SCH (07:00)
[2017-11-29] MEDS: levoTHYROXINE 25mcg tablet PO SCH (07:01)
[2017-11-29] MEDS: atorvastatin 10mg tablet PO SCH (07:01)
[2017-11-29] MEDS: lactobacillus rhamnosus 10,000 MMU CELLS/CAPSULE PO SCH (07:01)
[2017-11-29] MEDS: pantoprazole 40mg Tablet.DR PO SCH (07:01)
[2017-11-29] MEDS: CefTRIAXone 2gm/NS 100ml IVPB 100 ML IV SCH (07:01)
[2017-11-29] MEDS: ferrous sulfate ER tablet 140 MG TABLET.ER PO SCH (07:01)
[2017-11-29] MEDS: multivitamins, therapeutics tablet PO SCH (07:01)
[2017-11-29] MEDS: tamsulosin 0.4mg capsule PO SCH (07:02)
[2017-11-29] MEDS: clopidogrel 75mg tablet PO SCH (07:02)
[2017-11-29] MEDS: potassium chloride 10mEq ER tablet PO SCH (08:00)
[2017-11-29] MEDS: K and/or MAG REPLACEMENT MC SCH (08:00)
[2017-11-29] MEDS ORDERED: FERR140T PO (09:02)
[2017-11-29] MEDS ORDERED: POTA10TA10 PO (09:10)
[2017-11-29] MEDS ORDERED: FURO-150 PO (09:10)
[2017-11-29] MEDS ORDERED: SULF1TAB49 PO (09:18)
== END 2017-11-29 11:50 | disposition home or self-care (01) | DRG 872 ==
LOC: ER 00:06 → ED HOLD 05:24 → SUR 3N 07:26 → CMPBEDREQ 11-28 19:49
PROVIDERS: ADMIT Internal Medicine; ATTEND Internal Medicine
DX: A41.9 Sepsis, unspecified organism (principal); N17.9 Acute kidney failure, unspecified; I48.91 Unspecified atrial fibrillation; I13.0 Hypertensive heart and chronic kidney disease with heart failure and stage 1 through stage 4 chronic kidney disease, or unspecified chronic kidney disease; D64.9 Anemia, unspecified; E86.0 Dehydration; I50.9 Heart failure, unspecified; E87.6 Hypokalemia; E03.9 Hypothyroidism, unspecified; G89.29 Other chronic pain; N39.0 Urinary tract infection, site not specified; W18.39XA Other fall on same level, initial encounter; I25.10 Atherosclerotic heart disease of native coronary artery without angina pectoris; I95.1 Orthostatic hypotension; R29.6 Repeated falls; N18.9 Chronic kidney disease, unspecified; N40.0 Benign prostatic hyperplasia without lower urinary tract symptoms; Z60.2 Problems related to living alone; I25.2 Old myocardial infarction; Z95.0 Presence of cardiac pacemaker; Z95.1 Presence of aortocoronary bypass graft; Z79.899 Other long term (current) drug therapy; Z79.01 Long term (current) use of anticoagulants; Z95.5 Presence of coronary angioplasty implant and graft; Z87.01 Personal history of pneumonia (recurrent); Z82.49 Family history of ischemic heart disease and other diseases of the circulatory system; Y93.89 Activity, other specified; Y92.89 Other specified places as the place of occurrence of the external cause; Y99.8 Other external cause status
CPT/HCPCS: 36415; 70450; 71045; 80048; 80053; 80061; 81001; 83735; 84132; 84443; 84484; 85025; 85610; 85730; 87070; 87088; 93005; 96361; 96374; 97110; 97116; 97162; 97530; 99285; A4315; A6212; A6213; J0696; J3480; J7030

== ENCOUNTER 2018-08-02 09:03 | Day surgery (SDC) | payer MEDICARE, OTHER ==
[2018-08-01 13:46] LABS: BASOPHILS % (AUTO) 0.5 % (0-1); EOSINOPHILS # (AUTO) 0.4 X10'3 (0-0.9); EOSINOPHILS % (AUTO) 5.3 % (0-6); HEMOGLOBIN 11.6 g/dl (14.0-17.9); LYMPHOCYTES # (AUTO) 1.3 X10'3 (1.1-4.8); LYMPHOCYTES % (AUTO) 16.3 % (21-51); MEAN CORPUSCULAR HEMOGLOBIN 31.9 PG (27.0-31.0); MEAN CORPUSCULAR HGB CONC 33.2 % (33.0-36.5); MONOCYTES # (AUTO) 0.8 X10'3 (0-0.9); MONOCYTES % (AUTO) 10.1 % (2-12); NEUTROPHILS # (AUTO) 5.4 X10'3 (1.8-7.7); NEUTROPHILS % (AUTO) 67.8 % (42-75); PLATELET COUNT 315 X10'3 (140-440); RED BLOOD COUNT 3.65 X10'6 (4.70-6.10); RED CELL DISTRIBUTION WIDTH 14.4 % (11.5-14.5)
[2018-08-01 14:00] LABS: ALBUMIN 3.3 G/DL (3.4-5.0); ANION GAP 4 (8-16); BLOOD UREA NITROGEN 14 MG/DL (7-18); BUN/CREATININE RATIO 13.9 (5.4-32.0); CALCIUM 8.7 MG/DL (8.5-10.1); CHLORIDE 98 MMOL/L (99-107); CREATININE 1.01 MG/DL (0.60-1.10); GLUCOSE 113 MG/DL (70-104); POTASSIUM 4.6 MMOL/L (3.5-5.1); SODIUM 137 MMOL/L (135-145); TOTAL CARBON DIOXIDE 35.5 MMOL/L (24-32); eGFR 70 ML/MIN
[2018-08-01 14:18] LABS: INR 1.1 INR; PARTIAL THROMBOPLASTIN TIME 33 SECONDS (22-32); PROTHROMBIN TIME 11.4 SECONDS (9.0-12.0)
[~2018-08-02] VITALS: Ht 180.3 cm; Wt 87.5 kg
[2018-08-02] VITALS (9 sets, daily range): BP systolic 116–126; BP diastolic 62–79
[~2018-08-02 09:03] MED LIST changes: +CLOP75TA15 PO; +FERR140T2 PO; +FURO-150 PO; -FURO80TA87 PO; -HYDR-565 PO; -IPRA3AMP IH; -UBID100C16 PO
[2018-08-02] MEDS ORDERED: LORazepam 0.5 MG tablet PO PRN (09:35)
[2018-08-02] MEDS ORDERED: sod bicarbonate 150mEq in D5W 1,150 ML IV ONE (09:35)
[2018-08-02] MEDS ORDERED: diphenhydrAMINE 25mg capsule PO PRN (09:35)
[2018-08-02] MEDS ORDERED: normal saline 1000ml 1,000 ML IV SCH (11:25)
[2018-08-02] MEDS ORDERED: FURO-150 PO ×2 (11:33→11:41)
[2018-08-02] MEDS ORDERED: ACET325T55 PO (11:33)
[2018-08-02] MEDS ORDERED: POTA10TA10 PO (11:33)
[2018-08-02] MEDS ORDERED: SOTA80TA73 PO (11:38)
[2018-08-02] MEDS ORDERED: LOSA25TA96 PO (11:38)
[2018-08-02] MEDS ORDERED: nitroGLYCERIN-Tridil 50MG/D5W 250 ML IV ONE (11:40)
[2018-08-02] MEDS ORDERED: iohexol 350MG/ML 100ml bottle IV ONE ×3 (11:41→12:56)
[2018-08-02] MEDS ORDERED: POTA10TA19 PO (11:41)
[2018-08-02] MEDS ORDERED: midazolam 2 mg/2 ml injection ONE (11:41)
[2018-08-02] MEDS ORDERED: fentaNYL/PF 50MCG/1 ML 2ML syringe ONE (11:41)
[2018-08-02] MEDS ORDERED: heparin 1,000unit/ml 10ml vial 10 ML ONE (11:41)
[2018-08-02] MEDS ORDERED: LIDOcaine 1% (10mg/ml)w/preservative injection 20ml MDV ONE (11:41)
[2018-08-02] MEDS ORDERED: iohexol 350 MG/ML 50ML vial IV ONE (11:41)
[2018-08-02] MEDS ORDERED: heparin 25,000 UNIT/250ml bag 250 ML IV ONE (12:55)
[2018-08-02] MEDS ORDERED: clopidogrel 300mg tablet ONE (13:24)
[2018-08-02] MEDS ORDERED: acetaminophen 325mg tablet PO PRN ×2 (14:10→14:15)
[2018-08-02] MEDS ORDERED: aspirin 81mg tab.chew PO ONE (14:10)
[2018-08-02] MEDS ORDERED: proCHLORperazine 10 MG/2 ml inj IV PRN (14:10)
[2018-08-02] MEDS ORDERED: OXAZEpam 15mg capsule PO PRN (14:15)
[2018-08-02] MEDS ORDERED: HYDROcodone/acetaminophen 10/325mg tab PO PRN ×2 (14:15)
[2018-08-02] MEDS ORDERED: cyclobenzaprine 10mg tablet PO PRN (14:15)
[2018-08-02] MEDS ORDERED: docusate sod 100mg capsule PO SCH (20:00)
[2018-08-02] MEDS ORDERED: magnesium hydroxide 30ml (MOM) UD suspension PO SCH (21:00)
[2018-08-03] MEDS ORDERED: clopidogrel 75mg tablet PO SCH (08:00)
[2018-08-03] MEDS ORDERED: aspirin 81mg tab.chew PO SCH (08:30)
== END 2018-08-02 20:10 | disposition home or self-care (01) ==
LOC: SSTAY O 09:03
PROVIDERS: ATTEND Internal Medicine Cardiovascular Disease
DX: I25.708 Atherosclerosis of coronary artery bypass graft(s), unspecified, with other forms of angina pectoris (principal); E78.5 Hyperlipidemia, unspecified; I11.0 Hypertensive heart disease with heart failure; I50.30 Unspecified diastolic (congestive) heart failure; I48.0 Paroxysmal atrial fibrillation; M19.90 Unspecified osteoarthritis, unspecified site; G47.33 Obstructive sleep apnea (adult) (pediatric); I49.5 Sick sinus syndrome; N40.0 Benign prostatic hyperplasia without lower urinary tract symptoms; E03.9 Hypothyroidism, unspecified; Z87.440 Personal history of urinary (tract) infections; Z86.74 Personal history of sudden cardiac arrest; Z87.01 Personal history of pneumonia (recurrent); Z90.49 Acquired absence of other specified parts of digestive tract; Z98.41 Cataract extraction status, right eye; Z98.42 Cataract extraction status, left eye; Z95.0 Presence of cardiac pacemaker; Z95.5 Presence of coronary angioplasty implant and graft; Z95.2 Presence of prosthetic heart valve; Z95.1 Presence of aortocoronary bypass graft; Z79.01 Long term (current) use of anticoagulants; Z79.891 Long term (current) use of opiate analgesic; Z96.653 Presence of artificial knee joint, bilateral; Z85.828 Personal history of other malignant neoplasm of skin; Z86.19 Personal history of other infectious and parasitic diseases; Z79.899 Other long term (current) drug therapy; Z98.890 Other specified postprocedural states; Z82.49 Family history of ischemic heart disease and other diseases of the circulatory system
CPT/HCPCS: 36415; 80048; 85025; 85347; 85610; 85730; 93005; 93459; 99152; 99153; A6257; C1760; C1874; C9604; J1644; J2001; J2250; J3010; J7030; Q0163; Q9967; C1725; C1769; J3490

== ENCOUNTER 2018-11-28 14:25 | Inpatient (IN) | payer MEDICARE, OTHER | END 2018-12-01 14:16 | disposition home or self-care (01) | LOC: ER 14:25 → PCU 3S 11-29 17:10 → ED HOLD 19:31 → PCU 3S 21:55 | DX: A41.9 Sepsis, unspecified organism (principal); J96.00 Acute respiratory failure, unspecified whether with hypoxia or hypercapnia; N39.0 Urinary tract infection, site not specified; I50.9 Heart failure, unspecified ==